=== PATIENT | male | born 1970 | race Caucasian/White ===

== ENCOUNTER 2022-08-18 09:40 | Observation (INO) ==
--- NOTE | 2022-08-12 14:37 | Anesthesiology Consultation ---
Date of Service August 12, 2022 Assessment & Plan (1) Encounter for pre-operative examination: COVID screening: Per assessment on 08/12: No known COVID-19 positive contacts or current COVID-19 related symptoms. Travel screen negative. At surgeon discretion if preop Covid testing being done. Chart Review Chart Review: Acceptable Risk for Surgery and Patient NOT seen in Pre Admission Testing History Surgery Operation Date: 08/18/22 12:45 Proposed Procedures p Open Left Inguinal Hernia Repair with Mesh - James Eason MD Height/Weight Height: 5 ft 11 in Weight: 115.212 kg Allergies Allergy/AdvReac Type Severity Reaction Status Date / Time crest toothpaste Allergy scabs Uncoded 08/12/22 13:52 Medications Home Medications Medication Instructions Recorded Confirmed Last Taken levothyroxine 75 mcg tablet 75 mcg PO QAM 08/12/22 08/12/22 Unknown olanzapine 20 mg tablet 20 mg PO HS 08/12/22 08/12/22 Unknown Past Medical History Medical History Carpal tunnel syndrome, bilateral Hypothyroidism Learning disability Left inguinal hernia Poor historian Schizophrenia Tinnitus Past Surgical History Surgical History History of tonsillectomy Social History Smoking Status: Former smoker Do You Dip or Chew Tobacco: No Smoking End Date: 7 years ago Hx Alcohol Use: No Hx Substance Use: No substance use type: does not use Testing Laboratory Results 08/06/22 WBC 7.77 H/H 15.8/46.8 PLATELETS 236 SODIUM 141 POTASSIUM 4.5 CHLORIDE 102 CO2 28 BUN 15 CREATININE 1.0 GLUCOSE 104 Electrocardiogram Date: 08/06/22 NSR at 78bpm. RBBB.
[~2022-08-18 09:40] MED LIST: LACTATED RINGER'S 1,000 ML IV SCH; ceFAZolin 2000MG 2,000 MG/15 ML SYR IV SCH
--- NOTE | 2022-08-18 09:49 | History & Physical Bridge Note ---
Date of Service August 18, 2022 History & Physical Bridge Note I have examined the patient, reviewed the History & Physical and in the interval since the performance of the History & Physical I have noted the following changes of clinical significance: no changes noted
[2022-08-18] MEDS ORDERED: fentaNYL citrate PF 100 MCG/2 ML VIAL ONE ×2 (10:32→11:55)
[2022-08-18] MEDS ORDERED: LIDOCAINE 2% 2 ML VIAL/AMP(20MG/ML) INFIL ONE (10:32)
[2022-08-18] MEDS ORDERED: ONDANSETRON INJ 2 MG/ML 2 ML VIAL ONE (10:32)
[2022-08-18] MEDS ORDERED: MIDAZOLAM HCL 1 MG/ML 2ML VIAL ONE (10:32)
[2022-08-18] MEDS ORDERED: PROPOFOL IV EMULSION 10 MG/ML 20 ML VIAL IV ONE (10:32)
[2022-08-18] MEDS ORDERED: DEXAMETHASONE SOD INJ 4 MG/ML VIAL ONE (10:32)
[2022-08-18] MEDS ORDERED: ROCURONIUM BROMIDE 10 MG/ML 5 ML VIAL IV ONE ×2 (10:33→12:19)
[2022-08-18] MEDS ORDERED: LARYING-O-JET KIT (LTA) ONE (10:33)
[2022-08-18] MEDS ORDERED: fentaNYL citrate PF 100 MCG/2 ML VIAL IV PRN (10:53)
[2022-08-18] MEDS ORDERED: HYDROmorphone INJ 1 MG/ML SYRINGE IV PRN (10:53)
[2022-08-18] MEDS ORDERED: ATROPINE SULFATE 0.1 MG/ML 10ML SYR IV PRN (10:53)
[2022-08-18] MEDS ORDERED: ONDANSETRON INJ 2 MG/ML 2 ML VIAL IV PRN ×2 (10:53→13:32)
[2022-08-18] MEDS ORDERED: ePHEDrine sulfate 50 MG/ML AMP IV PRN (10:53)
[2022-08-18] MEDS ORDERED: BUPIVACAINE/EPINEPHRINE 0.25% 1:200,000 30 ML VIAL ONE (11:16)
[2022-08-18] MEDS ORDERED: SUGAMMADEX SODIUM 200 MG/2 ML VIAL IV ONE (12:13)
[2022-08-18] MEDS ORDERED: PHENYLEPHRINE 100MCG/ML 5ML SYR ONE (12:27)
--- NOTE | 2022-08-18 13:17 | Post Operative Brief Note ---
Immediate Post Op Note v1 Date of Surgery August 18, 2022 Pre & Post Diagnosis Operation Date: 08/18/22 11:25 Pre-Op Diagnosis: Left Inguinal Hernia Post-Op Diagnosis: Left Inguinal Hernia I identified the patient and participated in the time-out.: Yes Procedure Operation Date: 08/18/22 11:25 Actual Procedures p Open Left Inguinal Hernia Repair with Mesh(Left) - James Eason MD Surgeon James Eason MD Real Estate Portfolio Manager ELI Jackman assisted with tissue retraction, camera op, closure Estimated Blood Loss 20 Findings Consistent with Post-Op Diagnosis
[2022-08-18] MEDS ORDERED: KETOROLAC 30 MG/ML VIAL ONE (13:22)
--- NOTE | 2022-08-18 13:24 | Operative Report ---
Post Operative Report Pre & Post Diagnosis Operation Date: 08/18/22 11:25 Pre-Op Diagnosis: Left Inguinal Hernia Post-Op Diagnosis: Left Inguinal Hernia I identified the patient and participated in the time-out.: Yes Procedure Operation Date: 08/18/22 11:25 Actual Procedures p Open Left Inguinal Hernia Repair with Mesh(Left) - James Eason MD Surgeon James Eason MD Applications Administrator ELI Jackman assisted with tissue retraction, camera op, closure Estimated Blood Loss 20 Findings Consistent with Post-Op Diagnosis Large direct left inguinal hernia containing entire sigmoid colon, incarcerated; and extensive chronic inflammatory tissue. Due to the tedious nature of the dissection, the case took more than double the normal length for the surgery, warranting a 22 modifier for the surgery. Specimens Hernia sac Drains 10 Niuean flat MARIE Anesthesia Type General Complications No immediate complications Description of Procedure Patient taken to the operating room, placed supine on the operating table. A timeout was performed, perioperative antibiotics were administered, SCD boots were placed. After adequate anesthesia and analgesia was obtained, the area was prepped and draped in the normal sterile fashion. The hernia was a very large incarcerated inguinal hernia containing the entire length of the sigmoid colon as seen on CT scan. An ilioinguinal nerve block was effected on the left side. An oblique incision was made in the left inguinal region carried down to the level of the external oblique fascia. The external oblique fascia was opened through the external ring.a very large sac containing bowel was noted. This was carefully dissected free circumferentially and brought up into the incision. There was a significant amount of chronic inflammatory tissue in this location. It was very difficult to distinguish the cord structures from the hernia sac. The hernia sac was entered along the distal aspect. The entire sigmoid colon was contained within it and was adhesed at various points of the hernia sac. These were taken down with judicious use of the cautery as well as Metzenbaum scissor dissection. The patient was placed in Trendelenburg position, and the sigmoid colon was then reduced back into the abdominal cavity. Excess proximal sac was excised and sent off field for specimen. The peritoneum was closed at the level of its exit from the inguinal floor. It was reduced back into the abdominal cavity. At this point we were able to see the cord structures attached to the remainder of the sac. These were encircled at the pubic tubercle with a Kelly drain. The landmarks of the pubic tubercle and shelving edge of the inguinal ligament were delineated. A plug and patch were brought onto the field. The plug was sewn into the direct defect in the inguinal floor with 2-0 Prolene. A patch was then brought onto the fielda keyhole incision was cut, and the patch was secured medially to the pubic tubercle, inferiorly to the shelving edge of the inguinal ligament, superolaterally to the transversalis and internal oblique fascia. The internal ring was reapproximated with 2-0 Prolene suture. We turned our attention to the distal sac. Excess sac was excised, however in the distal reaches of the sac, it was intimately adherent to the cord structures. To avoid injury to the cord structures/testicle, a bit of the remaining distal sac was left in situ. A 10 Niuean flat MARIE drain was placed through a separate stab incision in the scrotum and was secured with 3-0 silk suture. Attention was turned to hemostasis, which was excellent. The wound was copiously irrigated and suctioned free, again hemostasis was checked and was excellent. The external oblique fascia was closed with 2-0 Vicryl. The subcutaneous tissue was closed with 3-0 Vicryl. Skin was closed with running 4- 0 Monocryl subcuticular stitch. Dermabond was applied. He tolerated the procedure without complication, was transferred in stable condition to the PACU. All instrument, needle, and sponge counts were correct at the end of the case. Due to the large hernia, incarcerated full length of sigmoid colon, and chronic inflammation, this operation took over twice the normal length of time to complete. These factors warranted 22 modifier for the surgery. My business development assistant was necessary throughout the procedure for tissue retraction, possible camera operation, and closure of the wounds. I understand that section 1842(b)(7)(D) of the Social Security act generally prohibits Medicare physician fee schedule payment for the services of assistants at surgery in teaching hospitals when qualified residents are available to furnish such services. I certify that the services for which payment is claimed were medically necessary and that no qualified resident was available to perform the services. I further understand that these services are subject to postpayment review by the Medicare carrier. I attest to the content of the Intraoperative Record and any orders documented therein. Any exceptions are noted below.
[2022-08-18] MEDS ORDERED: PROMETHAZINE HCL 12.5 MG in SODIUM CHLORIDE 0.9% 50 ML IV PRN (13:32)
[2022-08-18] MEDS ORDERED: diphenhydrAMINE Capsule 25 MG CAP PO PRN (13:32)
[2022-08-18] MEDS ORDERED: KETOROLAC 30 MG/ML VIAL IV PRN (13:32)
[2022-08-18] MEDS ORDERED: LACTATED RINGER'S 1,000 ML IV SCH (13:32)
[2022-08-18] MEDS ORDERED: oxyCODONE/ACETAMINOPHEN 5mg/325mg TAB PO PRN (13:32)
[2022-08-18] MEDS ORDERED: MoRPHine SULFATE 2 MG/ML CARP IV PRN (13:32)
--- NOTE | 2022-08-18 14:38 | Anesthesiology Progress Note ---
Date of Service August 18, 2022 Anesthesia Post Procedure Vital Signs Vital Signs: Temp Pulse Pulse Resp BP Pulse Ox O2 Del Method 08/18/22 14:25 36.3 C L 76 12 135/91 96 Room Air 08/18/22 14:15 78 15 122/93 97 Oxymask 08/18/22 14:05 77 16 123/82 97 Oxymask 08/18/22 13:55 75 20 113/83 93 Oxymask 08/18/22 13:47 36.0 C L 76 20 127/89 94 Oxymask 08/18/22 10:13 36.9 C 83 20 142/90 H 95 Room Air O2 Flow Rate 08/18/22 14:25 08/18/22 14:15 4 08/18/22 14:05 6 08/18/22 13:55 10 08/18/22 13:47 15 08/18/22 10:13 Transfer of Care Handoff Completed per policy Notes Mental Status: alert / awake / arousable and participated in evaluation Patient Amnestic to Procedure: Yes Nausea / Vomiting: adequately controlled Pain: adequately controlled Airway Patency, RR, SpO2: stable & adequate BP & HR: stable & adequate Hydration State: stable & adequate Anesthetic Complications: no major complications apparent and Pt Satisfied with anesthetic care
[2022-08-18] MEDS ORDERED: OLANZapine 20 MG TABLET PO SCH (21:00)
[2022-08-19] MEDS ORDERED: LEVOTHYROXINE SODIUM 75 MCG TABLET PO SCH (06:30)
[2022-08-19] MEDS ORDERED: ENOXAPARIN INJ 40 MG/0.4 ML SYR SQ SCH (08:00)
--- NOTE | 2022-08-19 09:20 | Surgery Progress Note ---
Date of Service August 19, 2022 Assessment & Plan (1) Left inguinal hernia: Plan pod 1. Status post left inguinal hernia repair with mesh Doing well Advance diet as tolerated Aggressive incentive spirometry / pulmonary toilet Encourage out of bed ambulating DVT prophylaxis with SCDs and Lovenox Wean off oxygen Possible discharge to home later today Will need drain teaching for home Admission and Anticipated Discharge Date Admission Date: August 18, 2022 Subjective Postop day 1. Status post open left inguinal hernia repair with mesh for a large inguinal hernia containing entire sigmoid colon. Doing well. Minimal pain. Having trouble urinating. No nausea or vomiting. Tolerating clears. Physical Exam Physical Exam: NAD, A&O x3 AF VSS abdomen: Soft, minimal tenderness to palpation No distention MARIE drain with serosanguineous drainage Results & Data Vital Signs (Past 12 Hours) Vital Signs Temp Pulse Resp BP Pulse Ox O2 Del Method O2 Flow Rate 08/19/22 08:50 95 Room Air 08/19/22 07:34 Nasal Cannula 2 08/19/22 07:25 37.1 C 94 H 16 118/81 95 Room Air 08/19/22 04:00 37.1 C 99 H 16 132/77 96 Room Air 08/19/22 00:38 37.3 C 101 H 16 105/69 95 Nasal Cannula 2
--- NOTE | 2022-08-22 10:52 | Discharge Summary ---
Date of Service August 22, 2022 Admission HPI Per Admitting Provider Patient presented to [facility] on 08/18/2022 for elective left inguinal hernia repair by Dr. Eason for a chronic large left inguinal hernia containing large bowel. Principal Diagnosis left incarcerated inguinal hernia containing large bowel Discharge Data Allergies Allergy/AdvReac Type Severity Reaction Status Date / Time crest toothpaste Allergy scabs Uncoded 08/18/22 09:53 Procedures Performed Operation Date: 08/18/22 11:25 Actual Procedures p Open Left Inguinal Hernia Repair with Mesh(Left) - James Eason MD Hospital Course (1) Left inguinal hernia: Plan Patient was taken to operating room for elective left inguinal hernia repair with mesh by Dr. Eason on 08/18/2022. Due to large hernia containing entire sigmoid colon and length of procedure, patient was kept overnight for observation. Patient tolerated procedure without difficulty and was transferred to medical/surgical floor for postoperative care. A surgical drain was placed into scrotum due to excess tissue after hernia reduction and repair to avoid fluid accumulation. POD # 1 patient was evaluation, afebrile, vss, tolerating liquid diet. Patients diet was advanced as tolerated and patient was discharged home on POD # 1 in stable condition with jarrod drain and close follow-up in surgery office in 3 days. Total Time Total Time Spent Total Time Spent (In Minutes): 30 minutes Discharge Plan Discharge Items Patient Disposition: Home - Self-Care Reason For Visit: POSTOP LARGE INCARCERATED L INGUINAL HERNIA REPAIR Discharge Diagnosis: Left inguinal hernia Activity: Per Instructions section Lifting: No more than 10 pounds Sexual Activity: Wait until after follow-up appointment Exercise/Sports: Wait until after follow-up appointment Non-emergency contact: Surgeon Call non-emergency contact if: you have any medication questions, your symptoms worsen, your pain is not controlled, your pain is worsening, your pain is unusual for you, your pain is concerning for you, your temperature is above 101.5, your wound has increased redness, your wound has increased drainage and your wound pain has increased Follow-up/Referrals: James Eason MD [Physician] - 08/22/22 10:45 am (DRAIN REMOVAL) Aditya Belcher MD [Primary Care Provider] - Diet: Regular Addtl Attending Provider Instructions: ACTIVITY RECOMMENDATIONS: * Walk as much as possible. * No heavy lifting (>10 lbs.) for 6 weeks. SPECIAL CARE INSTRUCTIONS: * Ice to hernia repair site on and off until bedtime tonight. * May shower in 24 hours. Let water run over area and pat dry. * Leave Dermabond in place. * Call the surgeon's office with any questions or concerns - (ex. temperature higher than 101 degrees F, excessive bleeding or pain). * Empty and record drain output as directed MEDICATIONS: Resume previous medications unless instructed otherwise by your surgeon. * Ibuprofen 600 mg every 6 hours with food * Percocet 1 every 4 hours, as needed for pain FOLLOW UP VISIT: If not already scheduled, please call the office to schedule a follow-up appointment ThursdayAugust 22 for drain removal. Office number Pending Studies at Discharge: No Stand-Alone Forms: My [facility] Medications and DC Order Prescriptions: New oxycodone-acetaminophen [Percocet] 5-325 mg tablet 1 tab PO Q6H PRN (Reason: pain) Qty: 10 0RF Continued levothyroxine 75 mcg Tablet 75 mcg PO QAM olanzapine 20 mg Tablet 20 mg PO HS Discharge Orders: Discharge Order (Routine); Ordered 08/19/22 Ordered By: James Perkins/Other Patient Handouts: Jimbo Hernandez Drain Tube Dc, Having Hernia Surgery: Patch Repair Admission Data Admit Date/Time: 08/18/22 13:27 Attending Provider: James Eason Admit Provider: James Eason Primary Care Provider: Aditya Belcher Other Interventions: Discharge Summary Assessment (RN) Last Done: 08/19/22 14:59
== END 2022-08-19 15:59 | disposition home or self-care (01) ==
LOC: 3N 09:40 → ASU 09:40